=== PATIENT | female | born 1985 | race Caucasian/White ===

== ENCOUNTER 2022-11-17 23:45 | Emergency (ER) | payer OTHER ==
[2022-11-17 23:54] VITALS: BP 162/92; PULSE 68; RESP 18; TEMP 97.9; BMI 29.2
[2022-11-18] MEDS ORDERED: ACETAMINOPHEN 325 MG TABLET (FP) PO ONE (01:06)
[2022-11-18] MEDS ORDERED: ONDANSETRON *ODT* 4 MG TABLET SL ONE (01:07)
[2022-11-18] MEDS ORDERED: ONDANSETRON *ODT* 4 MG TABLET ONE (01:37)
[2022-11-18 02:04] LABS: BASO % 0.7 % (0-2.0); EOS % 2.8 % (0-4.5); HEMOGLOBIN 11.9 GM/dL (10.7-15.3); LYMPH % 31.3 % (8-40); MCH 25.2 pg (25.7-33.7); MEAN CELL VOLUME 76.3 fl (80-96); MEAN PLT VOLUME 8.9 fl (7.5-11.1); NEUT % 58.2 % (42.8-82.8); PLATELET COUNT 318 10^3/uL (134-434); RBC 4.71 M/mm3 (3.60-5.2); RDW 16.3 % (11.6-15.6); WHITE BLOOD COUNT 9.7 K/mm3 (4.0-10.0)
[2022-11-18 02:28] LABS: POTASSIUM 4.8 mmol/L (3.5-5.1)
[2022-11-18 02:30] LABS: CALCIUM 8.7 mg/dL (8.5-10.1)
[2022-11-18 02:31] LABS: ALBUMIN 3.9 g/dl (3.4-5.0); BLOOD UREA NITROGEN 10.7 mg/dL (7-18); MAGNESIUM 1.9 mg/dL (1.8-2.4)
[2022-11-18 02:34] LABS: CREATININE 0.6 mg/dL (0.55-1.3)
[2022-11-18 02:36] LABS: BILIRUBIN,TOTAL 0.4 mg/dL (0.2-1); TOT PROT 7.7 g/dl (6.4-8.2)
[2022-11-18] MEDS ORDERED: KETOROLAC TROMETHAMINE 15 MG/ML VIAL IVPUSH ONE (02:39)
[2022-11-18] MEDS ORDERED: KETOROLAC TROMETHAMINE 15 MG/ML VIAL ONE (02:41)
== END 2022-11-18 03:41 | disposition home or self-care (01) ==
LOC: JER 23:45
PROC: 3E033NZ Introduction of Analgesics, Hypnotics, Sedatives into Peripheral Vein, Percutaneous Approach (ICD-10-PCS; principal; 2022-11-18)
DX: R06.02 Shortness of breath (principal); R07.81 Pleurodynia
CPT/HCPCS: 36415; 71046-TC-FY; 71101-TC-LT-FY; 80053; 83735; 84484; 84703; 85025; 93005; 93010; 99285-25; Q0162